=== PATIENT | male | born 1945 | race African-American/Black ===

== ENCOUNTER 2017-05-22 11:06 | Emergency (ER) | payer MEDICARE ==
[~2017-05-22] VITALS: Ht 182.9 cm; Wt 101.0 kg
[~2017-05-22 11:06] MED LIST: ALLOPURINOL100 MG PO; BACTRIM DS1 TAB PO; BACTRIM1 TAB OR; BIAXIN500 MG OR; BUTT PASTE EX; CEFEPIME1 GM IV; CEPHALEXIN500 MG PO; CHLORTHALID25 MG PO; CIPRO XR500 MG PO; CIPRO500 MG OR; CIPRO500 MG PO; CIPROFLOXACIN250 MG PO; CIPROFLOXACN250 MG PO; CIPROFLOXACN500 MG PO; CLOTRIM/BET2 EX; DIOVAN160 MG PO; DOXYCYCL HYC100 MG PO; DYAZIDE1 CAP OR; FLUCONAZOLE100 MG PO; HCTZ OR; HUMULIN R1 M1 SC; KEFLEX500 MG PO; LACTULOSE PO; LANTISEPTIC TOP; LANTUS; LANTUS100 MG/ML SC; LIPITOR10 MG OR; LIPITOR20 MG PO; LOPRESSOR50 MG PO; MACROBID100 MG OR; MAG CITRATE PO; METOPROL TAR100 M1 PO; METOPROLOL50 MG OR; MILK OF MAG2 OR; MINOCYCLINE100 MG PO; MULTIVITAM10 OR; MUPIROCIN2 % TOP; NITROFUR MAC100 MG PO; NORVASC10 M1 PO; NORVASC10 MG OR; NOVOLIN 701000 UNITS SC; NYSTATIN TOP; NYSTATIN100000 M2 EX; NYSTATIN100000 M3 EX; OMEGA-1 PO; PERCOCET 5/325M1 TAB OR; PERCOCET1 TA2 OR; PLAVIX75 MG OR; PLAVIX75 MG PO; PRILOSEC40 MG PO; PROTONIX40 M2 OR; RIFADIN300 MG OR; VANCOMYCIN HCL1 G1 IV; VITAMIN C500 M1 PO; ZINC50 M1 PO; [UNRECOGNIZED DRUG - MIXTURE] IV; [UNRECOGNIZED DRUG - OTHER] OR; [UNRECOGNIZED DRUG - OTHER] PO
[2017-05-22 12:27] LABS: URINE BILIRUBIN - DIPSTICK NEGATIVE (NEGATIVE); URINE BLOOD DIPSTICK TRACE-INTACT (NEGATIVE); URINE COLOR YELLOW; URINE GLUCOSE - DIPSTICK 100 mg/dL (NEGATIVE); URINE KETONE NEGATIVE (NEGATIVE); URINE LEUK ESTERASE TRACE (NEGATIVE); URINE NITRITE - DIPSTICK NEGATIVE (Negative); URINE PROTEIN - DIPSTICK 100 mg/dL (NEG-TRACE); URINE SPECIFIC GRAVITY >=1.030; URINE UROBILINOGEN - DIPSTICK 0.2 E.U./dL (0.2)
[2017-05-22 12:28] LABS: HEMOGLOBIN 11.4 g/dl (14.0-18.0); IMMATURE GRANULOCYTES 1.1 % (0.0-1.0); MEAN CORPUSCULAR HGB 27.9 pG CALC (26.0-32.0); MEAN CORPUSCULAR HGB CONC 31.7 g/L CALC (32.0-36.0); NEUT# 9.53 thou/uL (1.82-7.42); RED BLOOD COUNT 4.09 mill/uL (4.70-6.10); RED CELL DISTRI WIDTH 14.1 % (11.5-15.5)
[2017-05-22 12:33] LABS: URINE BACTERIA FEW hpf; URINE CLARITY SLIGHT CLOUDY; URINE EPITHELIAL CELLS MODERATE EPI/hpf (0-FEW); URINE MUCUS MODERATE hpf (NONE-FEW); URINE RBC 0-2 RBC/hpf (0-5); URINE WBC 0-2 WBC/hpf (0-5)
[2017-05-22 12:47] LABS: INFLUENZA A NONE DETECTED (NONE DETECT); INFLUENZA B NONE DETECTED (NONE DETECT)
[2017-05-22] MEDS ORDERED: TRISEBA SC (13:03)
[2017-05-22 13:08] LABS: ALBUMIN 3.4 g/dL (3.2-5.0); BILIRUBIN, TOTAL 0.7 mg/dL (0.0-1.4); CALCIUM 8.8 mg/dL (8.4-10.2); CREATININE 2.1 mg/dL (0.7-1.3); POTASSIUM 5.1 mmol/l (3.5-5.1); TOTAL PROTEIN 7.3 g/dL (6.3-8.2)
[2017-05-22] MEDS ORDERED: VITAMIN D35000 UNI3 PO (13:21)
[2017-05-22] MEDS ORDERED: MAGNESIUM500 M3 PO (13:22)
[2017-05-22] MEDS ORDERED: CIPROFLOXACN500 MG PO (13:23)
[2017-05-22 13:37] VITALS: BP 129/61
== END 2017-05-22 13:46 | disposition home or self-care (01) ==
LOC: ED 11:06
PROVIDERS: Emergency Medicine
DX: R50.9 Fever, unspecified (principal); I10 Essential (primary) hypertension; E11.9 Type 2 diabetes mellitus without complications; G82.20 Paraplegia, unspecified; G61.0 Guillain-Barre syndrome; Z93.59 Other cystostomy status; Z89.512 Acquired absence of left leg below knee; N39.0 Urinary tract infection, site not specified; J06.9 Acute upper respiratory infection, unspecified

== ENCOUNTER 2017-05-30 12:40 | Inpatient (IN) | payer MEDICARE ==
[~2017-05-30] VITALS: Ht 182.9 cm; Wt 112.0 kg
[~2017-05-30 12:40] MED LIST changes: +MAGNESIUM500 M3 PO; +TRISEBA SC; +VITAMIN D35000 UNI3 PO
[2017-05-30 13:48] LABS: HEMATOCRIT 31.3 % (39.0-50.0); HEMOGLOBIN 9.9 g/dl (14.0-18.0); IMMATURE GRANULOCYTES 2.2 % (0.0-1.0); MEAN CELL VOLUME 88.2 fL CALC (80.0-100.0); MEAN CORPUSCULAR HGB 27.9 pG CALC (26.0-32.0); MEAN CORPUSCULAR HGB CONC 31.6 g/L CALC (32.0-36.0); NEUT# 15.19 thou/uL (1.82-7.42); RED BLOOD COUNT 3.55 mill/uL (4.70-6.10); RED CELL DISTRI WIDTH 14.3 % (11.5-15.5)
[2017-05-30 14:05] LABS: ALBUMIN 3.4 g/dL (3.2-5.0); ALKALINE PHOSPHATASE 156 u/l (38-126); AMYLASE < 30 u/l (30-110); ANION GAP 15 (6-22 (CALC)); BILIRUBIN, TOTAL 0.8 mg/dL (0.0-1.4); BUN 40 mg/dL (8-23); BUN/CREATININE RATIO 18 (12-20 (CALC)); CALCIUM 8.9 mg/dL (8.4-10.2); CARBON DIOXIDE 29 mmol/l (22-30); CHLORIDE 96 mmol/l (95-108); CREATININE 2.3 mg/dL (0.7-1.3); GFR 28 ML/MIN (>=60 (CALC)); GFR FOR AFR.AMER. 34 ML/MIN (>=60 (CALC)); GLUCOSE 77 mg/dL (82-115); LIPASE < 10 u/l (23-300); POTASSIUM 4.7 mmol/l (3.5-5.1); SGOT/AST 53 u/l (19-48); SGPT/ALT 72 u/l (11-66); SODIUM 136 mmol/l (137-146); TOTAL PROTEIN 7.5 g/dL (6.3-8.2)
[2017-05-30 14:17] LABS: MYOGLOBIN 816 ng/mL (0 - 121)
[2017-05-30 15:45] LABS: URINE BILIRUBIN - DIPSTICK NEGATIVE (NEGATIVE); URINE BLOOD DIPSTICK MODERATE (NEGATIVE); URINE COLOR YELLOW; URINE GLUCOSE - DIPSTICK NEGATIVE (NEGATIVE); URINE KETONE NEGATIVE (NEGATIVE); URINE NITRITE - DIPSTICK NEGATIVE (Negative); URINE PROTEIN - DIPSTICK 100 mg/dL (NEG-TRACE); URINE SPECIFIC GRAVITY 1.015
[2017-05-30 15:46] LABS: URINE CLARITY HAZY; URINE LEUK ESTERASE MODERATE (NEGATIVE)
[2017-05-30 15:47] LABS: URINE BACTERIA FEW hpf
[2017-05-30 18:20] VITALS: BP 121/73
[2017-05-31] VITALS (10 sets, daily range): BP systolic 99–151; BP diastolic 26–75
[2017-05-31 06:31] LABS: HEMATOCRIT 28.6 % (39.0-50.0); HEMOGLOBIN 8.9 g/dl (14.0-18.0); MEAN CELL VOLUME 88.8 fL CALC (80.0-100.0); MEAN CORPUSCULAR HGB 27.6 pG CALC (26.0-32.0); MEAN CORPUSCULAR HGB CONC 31.1 g/L CALC (32.0-36.0); RED BLOOD COUNT 3.22 mill/uL (4.70-6.10); RED CELL DISTRI WIDTH 14.5 % (11.5-15.5)
[2017-05-31 06:52] LABS: INTERNATIONAL NORMALIZED RATIO 1.2 RATIO (0.7-1.3); PROTHROMBIN TIME 12.9 SECONDS (9.0-12.5)
[2017-05-31 07:10] LABS: ALBUMIN 2.4 g/dL (3.2-5.0); BILIRUBIN, TOTAL 0.6 mg/dL (0.0-1.4); CREATININE 2.1 mg/dL (0.7-1.3); POTASSIUM 4.6 mmol/l (3.5-5.1); TOTAL PROTEIN 5.4 g/dL (6.3-8.2)
== END 2017-05-31 19:10 | DRG 871 ==
LOC: ED 12:40 → ED-I 15:42 → ED 15:54 → MS2 15:55
PROVIDERS: Emergency Medicine; Surgery; ADMIT Internal Medicine; ATTEND Internal Medicine
PROC: 0J970ZX Drainage of Back Subcutaneous Tissue and Fascia, Open Approach, Diagnostic (ICD-10-PCS; principal; 2017-05-31)
DX: A41.9 Sepsis, unspecified organism (principal); L89.153 Pressure ulcer of sacral region, stage 3; N17.9 Acute kidney failure, unspecified; N18.4 Chronic kidney disease, stage 4 (severe); G82.20 Paraplegia, unspecified; E11.22 Type 2 diabetes mellitus with diabetic chronic kidney disease; E11.65 Type 2 diabetes mellitus with hyperglycemia; L02.212 Cutaneous abscess of back [any part, except buttock and flank]; M46.28 Osteomyelitis of vertebra, sacral and sacrococcygeal region; N39.0 Urinary tract infection, site not specified; K56.41 Fecal impaction; E86.0 Dehydration; G65.0 Sequelae of Guillain-Barre syndrome; I25.10 Atherosclerotic heart disease of native coronary artery without angina pectoris; T50.B95S Adverse effect of other viral vaccines, sequela; I12.9 Hypertensive chronic kidney disease with stage 1 through stage 4 chronic kidney disease, or unspecified chronic kidney disease; D63.1 Anemia in chronic kidney disease; E11.69 Type 2 diabetes mellitus with other specified complication; B95.61 Methicillin susceptible Staphylococcus aureus infection as the cause of diseases classified elsewhere; B96.20 Unspecified Escherichia coli [E. coli] as the cause of diseases classified elsewhere; B95.4 Other streptococcus as the cause of diseases classified elsewhere; Z79.02 Long term (current) use of antithrombotics/antiplatelets; Z93.59 Other cystostomy status; Z89.512 Acquired absence of left leg below knee; Z87.440 Personal history of urinary (tract) infections; Z79.4 Long term (current) use of insulin
CPT/HCPCS: J3370

== ENCOUNTER → 2018-11-23 | Outpatient (REF) | payer MEDICARE ==
[2018-11-23 13:41] LABS: URINE BILIRUBIN - DIPSTICK NEGATIVE (NEGATIVE); URINE BLOOD DIPSTICK LARGE (NEGATIVE); URINE COLOR YELLOW; URINE GLUCOSE - DIPSTICK 250 mg/dL (NEGATIVE); URINE KETONE NEGATIVE (NEGATIVE); URINE LEUK ESTERASE TRACE (Negative); URINE NITRITE - DIPSTICK NEGATIVE (Negative); URINE PROTEIN - DIPSTICK >=300 mg/dL (NEG-TRACE); URINE SPECIFIC GRAVITY 1.025; URINE UROBILINOGEN - DIPSTICK 0.2 E.U./dL (0.2)
[2018-11-23 13:42] LABS: URINE BACTERIA FEW hpf; URINE CLARITY SL CLOUDY; URINE EPITHELIAL CELLS MODERATE EPI/hpf (0-FEW); URINE WBC 0-2 WBC/hpf (0-5)
== END | disposition home or self-care (01) ==
LOC: LABSPEC 13:35
PROVIDERS: ATTEND Internal Medicine
DX: N39.0 Urinary tract infection, site not specified (principal); B95.61 Methicillin susceptible Staphylococcus aureus infection as the cause of diseases classified elsewhere

== ENCOUNTER 2019-06-16 17:08 | Inpatient (IN) | payer MEDICARE ==
[~2019-06-16] VITALS: Ht 182.9 cm; Wt 111.0 kg
[2019-06-16 18:09] LABS: HEMATOCRIT 37.8 % (39.0-50.0); HEMOGLOBIN 11.9 g/dl (14.0-18.0); IMMATURE GRANULOCYTES 0.6 % (0.0-5.0); MEAN CELL VOLUME 87.9 fL CALC (80.0-100.0); MEAN CORPUSCULAR HGB 27.7 pG CALC (26.0-32.0); MEAN CORPUSCULAR HGB CONC 31.5 g/L CALC (32.0-36.0); NEUT# 4.36 thou/uL (1.82-7.42); RED BLOOD COUNT 4.3 mill/uL (4.70-6.10); RED CELL DISTRI WIDTH 13.7 % (11.5-15.5)
[2019-06-16 18:19] LABS: POTASSIUM 4.5 mmol/l (3.5-5.1)
[2019-06-16 18:21] LABS: CREATININE 3.9 mg/dL (0.7-1.3)
[2019-06-16 18:50] LABS: URINE BILIRUBIN - DIPSTICK NEGATIVE (NEGATIVE); URINE BLOOD DIPSTICK MODERATE (NEGATIVE); URINE COLOR YELLOW; URINE GLUCOSE - DIPSTICK 250 mg/dL (NEGATIVE); URINE KETONE NEGATIVE (NEGATIVE); URINE PROTEIN - DIPSTICK >=300 mg/dL (NEG-TRACE); URINE SPECIFIC GRAVITY 1.015; URINE UROBILINOGEN - DIPSTICK 0.2 E.U./dL (0.2)
[2019-06-16 18:51] LABS: URINE LEUK ESTERASE MODERATE (NEGATIVE); URINE NITRITE - DIPSTICK POSITIVE (Negative)
[2019-06-16 18:59] LABS: URINE BACTERIA MODERATE hpf; URINE RBC TNTC RBC/hpf (0-5); URINE SQUAMOUS EPITHELIAL CELL FEW EPI/hpf (0-FEW); URINE WBC TNTC WBC/hpf (0-5)
[2019-06-16] MEDS ORDERED: NORVASC PO (18:59)
[2019-06-16] MEDS ORDERED: LEVEMIR100 UNIT/M (19:03)
[2019-06-16 20:15] VITALS: BP 180/90
[2019-06-17] VITALS (8 sets, daily range): BP systolic 151–171; BP diastolic 74–86
[2019-06-17 05:44] LABS: CREATININE 3.6 mg/dL (0.7-1.3); POTASSIUM 4.5 mmol/l (3.5-5.1)
[2019-06-17 05:53] LABS: MAGNESIUM 2.6 mg/dL (1.6-2.3)
[2019-06-18] VITALS (14 sets, daily range): BP systolic 108–216; BP diastolic 58–92
[2019-06-18 04:11] LABS: HEMATOCRIT 39.2 % (39.0-50.0); HEMOGLOBIN 12.2 g/dl (14.0-18.0); IMMATURE GRANULOCYTES 1.1 % (0.0-5.0); MEAN CELL VOLUME 89.1 fL CALC (80.0-100.0); MEAN CORPUSCULAR HGB 27.7 pG CALC (26.0-32.0); MEAN CORPUSCULAR HGB CONC 31.1 g/L CALC (32.0-36.0); NEUT# 1.98 thou/uL (1.82-7.42); RED BLOOD COUNT 4.4 mill/uL (4.70-6.10); RED CELL DISTRI WIDTH 13.8 % (11.5-15.5)
[2019-06-18 04:17] LABS: ALBUMIN 3.5 g/dL (3.2-5.0); ALKALINE PHOSPHATASE 144 u/l (38-126); ANION GAP 15 (6-22 (CALC)); BUN 49 mg/dL (8-23); BUN/CREATININE RATIO 15 (12-20 (CALC)); CARBON DIOXIDE 25 mmol/l (22-30); CHLORIDE 103 mmol/l (95-108); CREATININE 3.2 mg/dL (0.7-1.3); GFR 19 ML/MIN (>=60 (CALC)); GFR FOR AFR.AMER. 23 ML/MIN (>=60 (CALC)); SODIUM 137 mmol/l (137-146)
[2019-06-18 04:30] LABS: MYOGLOBIN 361 ng/mL (0 - 121)
[2019-06-18 04:48] LABS: BILIRUBIN, TOTAL 1.2 mg/dL (0.0-1.4); SGOT/AST 93 u/l (19-48)
[2019-06-18 09:16] LABS: CREATININE 3.7 mg/dL (0.7-1.3)
[2019-06-18 09:18] LABS: POTASSIUM 4.8 mmol/l (3.5-5.1)
== END 2019-06-18 09:30 | DRG 193 ==
LOC: ED 17:08 → ED-I 18:42 → ED 18:54 → MS2 18:55 → ED 18:55 → MS2 18:55 → ICU 18:55 → MS2 19:46 → ICU 06-18 03:10
PROVIDERS: Emergency Medicine; Family Medicine; Internal Medicine; ADMIT Internal Medicine; ATTEND Internal Medicine
PROC: 5A09357 Assistance with Respiratory Ventilation, Less than 24 Consecutive Hours, Continuous Positive Airway Pressure (ICD-10-PCS; principal; 2019-06-18)
DX: J18.9 Pneumonia, unspecified organism (principal); L89.153 Pressure ulcer of sacral region, stage 3; J96.02 Acute respiratory failure with hypercapnia; J96.01 Acute respiratory failure with hypoxia; N17.9 Acute kidney failure, unspecified; N39.0 Urinary tract infection, site not specified; G82.20 Paraplegia, unspecified; E11.22 Type 2 diabetes mellitus with diabetic chronic kidney disease; I12.9 Hypertensive chronic kidney disease with stage 1 through stage 4 chronic kidney disease, or unspecified chronic kidney disease; N18.9 Chronic kidney disease, unspecified; L08.9 Local infection of the skin and subcutaneous tissue, unspecified; E87.5 Hyperkalemia; E78.5 Hyperlipidemia, unspecified; G65.0 Sequelae of Guillain-Barre syndrome; B96.1 Klebsiella pneumoniae [K. pneumoniae] as the cause of diseases classified elsewhere; Z89.512 Acquired absence of left leg below knee; Z88.0 Allergy status to penicillin; Z88.2 Allergy status to sulfonamides; Z93.59 Other cystostomy status; Z74.01 Bed confinement status; Z79.4 Long term (current) use of insulin; Z87.891 Personal history of nicotine dependence
CPT/HCPCS: J1956